=== PATIENT | male | born 1970 | race Caucasian/White ===

== ENCOUNTER 2018-02-11 13:24 | Emergency (ER) | payer SELFPAY ==
[~2018-02-11] VITALS: Ht 188 cm; Wt 86.2 kg
[2018-02-11] MEDS ORDERED: Ciloxan5 ML RIGHTEYE (14:07)
[2018-02-11] MEDS ORDERED: Norco 5-325 Ta1 EACH PO (14:07)
== END 2018-02-11 14:15 | disposition home or self-care (01) ==
LOC: ER 13:24
DX: H16.001 Unspecified corneal ulcer, right eye (principal); F17.200 Nicotine dependence, unspecified, uncomplicated
CPT/HCPCS: 99283